=== PATIENT | male | born 1980 | race Caucasian/White ===

== ENCOUNTER 2018-07-13 09:29 | Emergency (ER) | payer BC ==
[2018-07-13 09:57] VITALS: BP 148/102
--- NOTE | 2018-07-13 10:33 | EDM.PDOC ---
ED HPI GENERAL MEDICAL PROBLEM - General Chief Complaint: ENT Problem Stated Complaint: DENTAL COMPLAINT Time Seen by Provider: 07/13/18 10:27 Source of Information: Reports: Patient History Limitations: Reports: No Limitations - History of Present Illness INITIAL COMMENTS - FREE TEXT/NARRATIVE: 38-year-old male presents to the ED with severe dental pain involving all of his upper incisor teeth. He states since he was in the and received anthrax vaccinations it compromised his enamel of his teeth. He started to have pain in his upper incisor teeth about 4 days ago which is. Gradually progressed. Pain pressure up underneath his nose. Pain radiates towards his right ear at times. He knows the teeth are in very bad shape. [facility] of these multiple badly carried teeth. Onset: Gradual Onset Date: 07/09/18 Duration: Day(s):, Getting Worse Location: Reports: Face (Dental infection and pain) Quality: Reports: Ache, Throbbing Severity: Moderate (8 out of 10) Improves with: Reports: Medication (Motrin helps take the edge off the pain but is taking at 600 mg every 3-4 hours.) Worsens with: Reports: Other (Touching the teeth hurts) Context: Denies: Activity, Exercise, Lifting, Sick Contact, Trauma Associated Symptoms: Reports: No Other Symptoms Treatments MANAGER TECHNICAL SUPPORT: Reports: NSAIDS (Motrin) Tooth/Teeth Pain Score (Numeric/FACES): 8 - Related Data Allergies Allergy/AdvReac Type Severity Reaction Status Date / Time Penicillins Allergy Anaphylactic Verified 07/13/18 09:56 Shock venom-honey bee Allergy Swelling Verified 07/13/18 09:56 [bee venom (honey bee)] Home Meds: Home Meds Ibuprofen 800 mg PO TID PRN #30 tablet 05/31/15 [Rx] Clindamycin HCl 300 mg PO TID #25 capsule 07/13/18 [Rx] oxyCODONE HCl/Acetaminophen [Percocet 5-325 mg Tablet] 1 - 2 each PO Q4H PRN # 20 tablet 07/13/18 [Rx] Past Medical History Musculoskeletal History: Reports: Back Pain, Chronic Social & Family History - Tobacco Use Smoking Status *Q: Never Smoker Second Hand Smoke Exposure: No - Caffeine Use Caffeine Use: Reports: Energy Drinks - Recreational Drug Use Recreational Drug Use: No - Living Situation & Occupation Living situation: Reports: Single Occupation: Employed ED ROS ENT - Review of Systems Review Of Systems: See Below Constitutional: Reports: Fatigue. Denies: Fever, Chills, Malaise HEENT: Reports: Dental Pain, Ear Pain (All of his upper incisors and even the left canine hurts. Right ear pain ) Respiratory: Reports: No Symptoms Cardiovascular: Reports: No Symptoms Endocrine: Reports: No Symptoms GI/Abdominal: Reports: No Symptoms : Reports: No Symptoms Musculoskeletal: Reports: Back Pain Skin: Reports: No Symptoms Neurological: Reports: No Symptoms Psychiatric: Reports: No Symptoms ED EXAM, ENT - Physical Exam Exam: See Below Exam Limited By: No Limitations General Appearance: Alert, WD/WN, Mild Distress Ears: Normal External Exam, Normal TMs Mouth/Throat: Dental Abcess, Dental Pain (All of the upper incisors are badly D cage and carried. The incisor), Dental Tenderness ( teeth are also involved. The molars are also involved. The main middle incisors i.e. both medial and lateral incisors are all badly decayed and half the teeth are present. The gingiva around these teeth is very erythematous and swollen I gingivitis.), Gum Swelling (Gingivitis involving the upper midline) Head: Atraumatic, Normocephalic Neck: Normal Inspection, Supple, Non-Tender, Full Range of Motion. No: Lymphadenopathy (L), Lymphadenopathy (R) Respiratory/Chest: No Respiratory Distress, Lungs Clear, Normal Breath Sounds, No Accessory Muscle Use, Chest Non-Tender Course - Vital Signs Last Recorded V/S: Last Vital Signs Temp 36.9 C 07/13/18 09:52 Pulse 80 07/13/18 09:52 Resp 18 07/13/18 09:52 BP 148/102 H 07/13/18 09:52 Pulse Ox 99 07/13/18 09:52 - Radiology Interpretation Free Text/Narrative:: 38-year-old male attends the ED with increasing dental pain involving all of his upper incisors and left lateral canine tooth over the last 4 days. Examination reveals the teeth to be extremely badly carried. There is over 50% of the enamel destroyed and almost all of these teeth. They need to be extracted. He has marked surrounding gingivitis of the upper midline of the mouth. Plan clindamycin 300 mg 3 times daily for the next 8 days. Continue Motrin 600 mg every 6-8 hours. Percocet tabs 5/3/25 one or 2 every 4-6 hours for pain relief for the next 3-4 days. He will plan on trying to follow-up with a dentist through the [facility]. Departure - Departure Time of Disposition: 10:27 Disposition: Home, Self-Care 01 Condition: Fair Clinical Impression: Dental caries pit and fissure, Dental abscess, Gingivitis - Discharge Information *PRESCRIPTION DRUG MONITORING PROGRAM REVIEWED*: Not Applicable *COPY OF PRESCRIPTION DRUG MONITORING REPORT IN PATIENT DENI: Not Applicable Prescriptions: Clindamycin HCl 300 mg PO TID #25 capsule oxyCODONE HCl/Acetaminophen [Percocet 5-325 mg Tablet] 1 - 2 each PO Q4H PRN # 20 tablet PRN Reason: pain relief. Instructions: Gingivitis, [id number], Dental Abscess, [id number] Referrals: Janelle Rasheed MD [Primary Care Provider] - Forms: ED Department Discharge Additional Instructions: Evaluation in the emergency department today in regards to multiple dental caries and infection of the upper incisor teeth. There is associated marked gingivitis or infection of the gums surrounding these dental carried teeth. Coumadin is antibiotic clindamycin 300 mg 3 times daily for the next 8 days to clear up dental infection. Continue Motrin 600 mg every 6 hours to relieve pain and inflammation. Percocet tabs 5/325 mg one or 2 every 4-6 hours necessary for pain relief until the antibiotics become ineffectual which is usually 2-3 days. Follow-up will get with dentist of course when able
== END 2018-07-13 10:55 | disposition home or self-care (01) ==
LOC: JD.ED 09:29
DX: K04.7 Periapical abscess without sinus (principal); K02.9 Dental caries, unspecified; K05.10 Chronic gingivitis, plaque induced; Z88.0 Allergy status to penicillin; Z91.030 Bee allergy status
CPT/HCPCS: 99283

== ENCOUNTER 2022-01-18 09:29 | Emergency (ER) | payer OTHER, BC ==
[2022-01-18 09:44] VITALS: BP 128/89; PULSE 84
[2022-01-18] MEDS ORDERED: Sodium Chloride 0.9% 10 ML Syringe FLUSH PRN (09:57)
[2022-01-18] MEDS ORDERED: ceFAZolin 2 GM in Sodium Chloride 0.9% 50 ML IV ONE ×2 (10:36→11:15)
[2022-01-18] MEDS ORDERED: ceFAZolin 1 GM Vial ONE (11:07)
== END 2022-01-18 12:50 | disposition home or self-care (01) ==
LOC: JD.ED 09:29
DX: S81.832A Puncture wound without foreign body, left lower leg, initial encounter (principal); Z88.0 Allergy status to penicillin; Z91.030 Bee allergy status; W26.8XXA Contact with other sharp object(s), not elsewhere classified, initial encounter
CPT/HCPCS: 36415; 73590; 80053; 85025; 86140; 96365; 99283; J0690; J3490

== ENCOUNTER 2024-10-03 13:46 | Emergency (ER) | payer BC, OTHER ==
[2024-10-03] MEDS ORDERED: Sodium Chloride 0.9% 10 ML Syringe FLUSH PRN (14:40)
[2024-10-03] MEDS: HYDROmorphone 0.5 MG/0.5 ML Syringe IVPUSH ONE (14:58)
[2024-10-03] MEDS: Sodium Chloride 0.9% 1,000 ML IV STA (14:58)
[2024-10-03] MEDS: Ondansetron 4 MG/2 ML SDV IVPUSH ONE (14:58)
[2024-10-03 15:08] LABS: BASOPHILS ABSOLUTE AUTO 0.1 K/mm3 (0.0-0.2); BASOPHILS PERCENT AUTO 0.9 % (0.0-1.0); EOSINOPHILS ABSOLUTE AUTO 0.1 K/mm3 (0.0-0.4); EOSINOPHILS PERCENT AUTO 1.9 % (0.0-6.0); HEMATOCRIT 46.4 % (42.0-52.0); HEMOGLOBIN 16.5 gm/dl (14.0-18.0); IMMATURE GRAN ABSOLUTE AUTO 0.03 K/mm3 (0.00-0.05); IMMATURE GRAN PERCENT AUTO 0.4 % (0.0-0.4); LYMPHOCYTES ABSOLUTE AUTO 2.3 K/mm3 (1.0-4.8); LYMPHOCYTES PERCENT AUTO 30.8 % (24.0-44.0); MEAN CORPUSCULAR HEMOGLOBIN 30.9 pg (28.0-32.0); MEAN CORPUSCULAR HGB CONC 35.6 g/dl (32.0-36.0); MEAN CORPUSCULAR VOLUME 86.9 fl (83.0-99.0); MEAN PLATELET VOLUME 9.7 fl (9.4-12.4); MONOCYTES ABSOLUTE AUTO 0.5 K/mm3 (0.0-0.8); NEUTROPHILS ABSOLUTE AUTO 4.5 K/mm3 (1.8-7.7); PLATELET COUNT,PLT 293 K/mm3 (150-400); RED BLOOD CELL COUNT 5.34 M/mm3 (4.52-5.90); WHITE BLOOD CELL COUNT,WBC 7.56 K/mm3 (3.9-11.3)
[2024-10-03] MEDS: Iopamidol 612 MG/ML 100 ML Bottle IVPUSH ONE (15:08)
[2024-10-03] MEDS: Sodium Chloride 0.9% 10 ML Syringe FLUSH ONE (15:08)
[2024-10-03 15:27] LABS: ALBUMIN 3.7 g/dl (3.4-5.0); ANION GAP 10.7 (5-15); BILIRUBIN TOTAL 0.4 mg/dL (0.2-1.0); BUN/CREATININE RATIO 7.8 (14-18); CALCIUM 9.3 mg/dL (8.5-10.1); CREATININE 0.9 mg/dL (0.7-1.3); EST CRCL DRUG DOSING (CG) 114.96 mL/min; POTASSIUM,K 3.7 mEq/L (3.5-5.1); PROTEIN TOTAL,TP 7.4 g/dl (6.4-8.2)
[2024-10-03 17:51] VITALS: BP 122/85; PULSE 69
== END 2024-10-03 17:05 | disposition home or self-care (01) ==
LOC: JD.ED 13:46
DX: K92.1 Melena (principal); K64.0 First degree hemorrhoids; R19.7 Diarrhea, unspecified; Z87.891 Personal history of nicotine dependence; Z88.0 Allergy status to penicillin; Z91.030 Bee allergy status; Z79.899 Other long term (current) drug therapy
CPT/HCPCS: 36415; 74177; 80053; 83690; 85025; 96361; 96374; 96375; 99284; J2405; J7030; Q9967

== ENCOUNTER 2025-01-24 09:11 | Emergency (ER) | payer OTHER ==
[2025-01-24 09:27] VITALS: BP 151/93; PULSE 84
[2025-01-24] MEDS: Fluorescein 1 MG Ophth Strip EYELF ONE (09:44)
[2025-01-24 10:04] LABS: BASOPHILS ABSOLUTE AUTO 0.1 K/mm3 (0.0-0.2); BASOPHILS PERCENT AUTO 0.9 % (0.0-1.0); EOSINOPHILS ABSOLUTE AUTO 0.1 K/mm3 (0.0-0.4); EOSINOPHILS PERCENT AUTO 1.4 % (0.0-6.0); IMMATURE GRAN ABSOLUTE AUTO 0.04 K/mm3 (0.00-0.05); IMMATURE GRAN PERCENT AUTO 0.4 % (0.0-0.4); LYMPHOCYTES ABSOLUTE AUTO 2.2 K/mm3 (1.0-4.8); LYMPHOCYTES PERCENT AUTO 23.5 % (24.0-44.0); MEAN PLATELET VOLUME 9.3 fl (9.4-12.4); MONOCYTES ABSOLUTE AUTO 0.7 K/mm3 (0.0-0.8); MONOCYTES PERCENT AUTO 7.6 % (0.0-8.0); NEUTROPHILS ABSOLUTE AUTO 6.2 K/mm3 (1.8-7.7); NEUTROPHILS PERCENT AUTO 66.2 % (41.0-71.0); NRBC ABSOLUTE 0.00 (0.00-0.02); NRBC PERCENT 0.0 % (0.0-0.2); PLATELET COUNT,PLT 291 K/mm3 (150-400); RED BLOOD CELL COUNT 4.92 M/mm3 (4.52-5.90); WHITE BLOOD CELL COUNT,WBC 9.33 K/mm3 (3.9-11.3)
[2025-01-24 10:37] LABS: A/G RATIO 1.0 (1-2); ALANINE AMINOTRANSFERASE,ALT 42.0 U/L (16-63); ASPARTATE AMNIOTRANSFERASE,AST 19.0 U/L (15-37); BILIRUBIN TOTAL 0.7 mg/dL (0.2-1.0); BLOOD UREA NITROGEN,BUN 10.0 mg/dL (7-18); CARBON DIOXIDE,CO2 29.0 mEq/L (21-32); CHLORIDE,CL 105.0 mEq/L (98-107); CREATININE 0.9 mg/dL (0.7-1.3); EST CRCL DRUG DOSING (CG) 118.37 mL/min; ESTIMATED GFR 108.0 mL/min (>60); GLUCOSE RANDOM 111.0 mg/dL (70-99); POTASSIUM,K 3.8 mEq/L (3.5-5.1); PROTEIN TOTAL,TP 7.1 g/dl (6.4-8.2); SODIUM,NA 141.0 mEq/L (136-145); TROPONIN I HIGH SENSITIVITY 5.0 pg/mL (<=76)
== END 2025-01-24 11:01 | disposition home or self-care (01) ==
LOC: JD.ED 09:11
DX: S05.02XA Injury of conjunctiva and corneal abrasion without foreign body, left eye, initial encounter (principal); M54.12 Radiculopathy, cervical region; K21.9 Gastro-esophageal reflux disease without esophagitis; Z88.0 Allergy status to penicillin; Z91.030 Bee allergy status; Z79.899 Other long term (current) drug therapy; X58.XXXA Exposure to other specified factors, initial encounter
CPT/HCPCS: 36415; 71045; 71045-26; 73030-26-LT; 73030-LT; 80053; 83735; 84484; 85025; 93005; 93010; 99283; 99285; J3490